=== PATIENT | male | born 1960 | race American Indian/Alaskan Native ===

== ENCOUNTER 2018-03-30 10:13 | Outpatient (CLI) | payer BC ==
[2018-03-30 10:53] LABS: Alanine Aminotransferase 33 units/L (7-56); Albumin 4.2 g/dL (3.9-5); BUN/Creatinine Ratio 15; Blood Urea Nitrogen 17 mg/dL (9-20); Calcium 9.1 mg/dL (8.4-10.2); Hemolysis Index 6
== END 2018-03-30 10:14 | disposition home or self-care (01) ==
LOC: LAB 10:13
PROVIDERS: ATTEND Internal Medicine
DX: I10 Essential (primary) hypertension (principal)
CPT/HCPCS: 36415; 80053; 82306; 82607; 82747

== ENCOUNTER 2018-08-29 06:16 | Outpatient (CLI) | payer BC ==
[2018-08-29 06:54] LABS: Hematocrit 46.3 % (35.5-45.6); Hemoglobin 15.3 gm/dl (11.8-15.2); Mean Corpuscular HGB Conc 33 % (32-34); Mean Corpuscular Volume 92 fl (84-94); Platelet Count 237 K/mm3 (140-440); Red Blood Count 5.02 M/mm3 (3.65-5.03); Red Cell Distribution Width 14.7 % (13.2-15.2)
[2018-08-29 07:38] LABS: Alanine Aminotransferase 38 units/L (7-56); Albumin 4.5 g/dL (3.9-5)
[2018-08-29 07:49] LABS: Bilirubin,Direct < 0.2 mg/dL (0-0.2)
== END 2018-08-29 06:17 | disposition home or self-care (01) ==
LOC: LAB 06:16
PROVIDERS: ATTEND Urology
DX: E29.1 Testicular hypofunction (principal)
CPT/HCPCS: 36415; 80076; 84153; 84402; 85027

== ENCOUNTER 2019-01-25 11:39 | Outpatient (CLI) | payer BC ==
[2019-01-25 12:06] LABS: Basophils % (Auto) 0.5 % (0.0-1.8); Eosinophils # (Auto) 0.2 K/mm3 (0.0-0.4); Eosinophils % (Auto) 2.8 % (0.0-4.3); Hematocrit 42.1 % (35.5-45.6); Hemoglobin 14.5 gm/dl (11.8-15.2); Lymphocytes # (Auto) 1.9 K/mm3 (1.2-5.4); Mean Corpuscular HGB Conc 34 % (32-34); Mean Corpuscular Volume 92 fl (84-94); Monocytes # (Auto) 0.6 K/mm3 (0.0-0.8); Monocytes % (Auto) 9.1 % (0.0-7.3); Platelet Count 246 K/mm3 (140-440); Red Cell Distribution Width 14.5 % (13.2-15.2)
[2019-01-25 12:30] LABS: Alanine Aminotransferase 25 units/L (7-56); Albumin 4.2 g/dL (3.9-5); BUN/Creatinine Ratio 12; Blood Urea Nitrogen 14 mg/dL (9-20); Calcium 8.9 mg/dL (8.4-10.2); Hemolysis Index 6; LDL Cholesterol,Direct 137 mg/dL (50-130)
--- NOTE | 2019-01-25 12:44 | XRay Report ---
RIGHT KNEE RADIOGRAPHS INDICATION: Bursitis of right knee. COMPARISON: None similar. FINDINGS: AP, lateral and oblique right knee radiographs suggest mild degenerative spurring involving the tibial spines, medial corners as also superior and inferior patellar poles. Superior patellar enthesophytes as well. Slight medial knee compartment narrowing not excluded. Intact overall articulation. No significant suprapatellar effusion. CONCLUSION: Mild right knee degenerative changes without acute abnormality, as described. Thank you for the opportunity to participate in this patient's care.
[2019-01-25 13:08] LABS: Chol/HDL Ratio 4.43 %; HDL Cholesterol 41 mg/dL (40-59)
[2019-01-29 14:15] LABS: Vitamin D, 25-OH, D2 35 ng/mL
== END 2019-01-25 11:40 | disposition home or self-care (01) ==
LOC: XRAY 11:39
PROVIDERS: ATTEND Internal Medicine
DX: Z13.220 Encounter for screening for lipoid disorders (principal); M17.11 Unilateral primary osteoarthritis, right knee; E55.9 Vitamin D deficiency, unspecified; D53.1 Other megaloblastic anemias, not elsewhere classified
CPT/HCPCS: 36415; 80053; 80061; 82306; 82607; 82747; 85025

== ENCOUNTER 2019-07-25 05:51 | Outpatient (CLI) | payer BC ==
[2019-07-25 06:15] LABS: Basophils # (Auto) 0.1 K/mm3 (0.0-0.1); Basophils % (Auto) 0.7 % (0.0-1.8); Eosinophils # (Auto) 0.3 K/mm3 (0.0-0.4); Eosinophils % (Auto) 3.8 % (0.0-4.3); Hematocrit 43.8 % (35.5-45.6); Hemoglobin 14.7 gm/dl (11.8-15.2); Lymphocytes # (Auto) 1.9 K/mm3 (1.2-5.4); Lymphocytes % (Auto) 24.3 % (13.4-35.0); Mean Corpuscular HGB Conc 34 % (32-34); Mean Corpuscular Volume 92 fl (84-94); Monocytes # (Auto) 0.9 K/mm3 (0.0-0.8); Monocytes % (Auto) 11.6 % (0.0-7.3); Platelet Count 284 K/mm3 (140-440); Red Blood Count 4.79 M/mm3 (3.65-5.03); Red Cell Distribution Width 14.6 % (13.2-15.2)
[2019-07-25 06:28] LABS: Alanine Aminotransferase 24 units/L (7-56); Albumin 4.5 g/dL (3.9-5); BUN/Creatinine Ratio 17; Blood Urea Nitrogen 22 mg/dL (9-20); Calcium 9.2 mg/dL (8.4-10.2); Chol/HDL Ratio 4.62 %; HDL Cholesterol 40 mg/dL (40-59); Hemolysis Index 13; LDL Cholesterol,Direct 135 mg/dL (50-130)
[2019-07-30 09:56] LABS: Vitamin D, 25-OH, D2 13 ng/mL
== END 2019-07-25 05:52 | disposition home or self-care (01) ==
LOC: LAB 05:51
PROVIDERS: ATTEND Internal Medicine
DX: E55.9 Vitamin D deficiency, unspecified (principal); D53.1 Other megaloblastic anemias, not elsewhere classified; I10 Essential (primary) hypertension
CPT/HCPCS: 36415; 80053; 80061; 82306; 82607; 82747; 85025

== ENCOUNTER 2019-10-09 05:36 | Outpatient (CLI) | payer BC | END 2019-10-09 05:37 | disposition home or self-care (01) | LOC: LAB 05:36 | PROVIDERS: ATTEND Urology | DX: R97.20 Elevated prostate specific antigen [PSA] (principal) | CPT/HCPCS: 36415; 84153 ==

== ENCOUNTER 2020-05-18 06:35 | Outpatient (CLI) | payer BC ==
[2020-05-18 06:58] LABS: Hematocrit 42.2 % (35.5-45.6); Hemoglobin 14.2 gm/dl (11.8-15.2); Mean Corpuscular HGB Conc 34 % (32-34); Mean Corpuscular Volume 93 fl (84-94); Platelet Count 281 K/mm3 (140-440); Red Blood Count 4.56 M/mm3 (3.65-5.03)
[2020-05-18 07:39] LABS: Alanine Aminotransferase 31 units/L (7-56)
[2020-05-18 07:41] LABS: Bilirubin,Direct < 0.2 mg/dL (0-0.2)
== END 2020-05-18 06:36 | disposition home or self-care (01) ==
LOC: LAB 06:35
PROVIDERS: ATTEND Urology
DX: E29.1 Testicular hypofunction (principal)
CPT/HCPCS: 36415; 80076; 84153; 85027

== ENCOUNTER 2020-11-30 06:53 | Outpatient (CLI) | payer BC ==
[2020-11-30 07:24] LABS: Hematocrit 43.1 % (35.5-45.6); Hemoglobin 14.6 gm/dl (11.8-15.2); Mean Corpuscular HGB Conc 34 % (32-34); Mean Corpuscular Volume 93 fl (84-94); Platelet Count 227 K/mm3 (140-440); Red Blood Count 4.63 M/mm3 (3.65-5.03)
[2020-11-30 07:43] LABS: Alanine Aminotransferase 27 units/L (7-56)
[2020-11-30 07:48] LABS: Bilirubin,Direct < 0.2 mg/dL (0-0.2)
== END 2020-11-30 06:54 | disposition home or self-care (01) ==
LOC: LAB 06:53
PROVIDERS: ATTEND Urology
DX: E16.2 Hypoglycemia, unspecified (principal)
CPT/HCPCS: 36415; 80076; 84153; 85027

== ENCOUNTER 2021-06-14 06:20 | Outpatient (CLI) | payer BC ==
[2021-06-14 06:43] LABS: Hematocrit 42.4 % (35.5-45.6); Hemoglobin 14.2 gm/dl (11.8-15.2); Mean Corpuscular HGB Conc 34 % (32-34); Mean Corpuscular Volume 92 fl (84-94); Platelet Count 265 K/mm3 (140-440); Red Blood Count 4.63 M/mm3 (3.65-5.03); Red Cell Distribution Width 13.7 % (13.2-15.2)
[2021-06-14 07:08] LABS: Alanine Aminotransferase 23 units/L (7-56); Albumin 3.9 g/dL (3.9-5)
[2021-06-14 07:16] LABS: Bilirubin,Direct < 0.2 mg/dL (0-0.2)
== END 2021-06-14 06:21 | disposition home or self-care (01) ==
LOC: LAB 06:20
PROVIDERS: ATTEND Urology
DX: E03.9 Hypothyroidism, unspecified (principal)
CPT/HCPCS: 36415; 80076; 84153; 85027

== ENCOUNTER 2021-11-30 09:39 | Outpatient (CLI) | payer BC ==
[2021-11-30 10:38] LABS: Alanine Aminotransferase 22 units/L (7-56); Albumin 4.2 g/dL (3.9-5)
[2021-11-30 10:40] LABS: Bilirubin,Direct < 0.2 mg/dL (0-0.2)
== END 2021-11-30 09:40 | disposition home or self-care (01) ==
LOC: LAB 09:39
PROVIDERS: ATTEND Urology
DX: E29.1 Testicular hypofunction (principal)
CPT/HCPCS: 36415; 80076; 84403

== ENCOUNTER 2022-04-05 09:31 | Outpatient (CLI) | payer BC ==
[2022-04-05 10:40] LABS: Albumin 4.5 g/dL (3.9-5); Calcium 9.4 mg/dL (8.4-10.2); Chol/HDL Ratio 4.76 %
== END 2022-04-05 09:32 | disposition home or self-care (01) ==
LOC: LAB 09:31
PROVIDERS: ATTEND Internal Medicine
DX: I10 Essential (primary) hypertension (principal)
CPT/HCPCS: 36415; 80053; 80061; 84443